=== PATIENT | female | born 1955 | race Caucasian/White ===

== ENCOUNTER 2023-10-28 08:02 | Day surgery (SDC) | payer MEDICARE ==
[2023-10-25 09:18] VITALS: BMI 27.3
[2023-10-28] MEDS ORDERED: CEFAZOLIN 2 GM VIAL ONE (08:38)
[2023-10-28] MEDS ORDERED: Sodium Chloride 0.9% 100 ML ONE (08:38)
[2023-10-28] MEDS ORDERED: Lidocaine 1% MPF 2 ML VIAL ONE (08:38)
[2023-10-28 09:21] LABS: #Eosinphils 0.1 thou/uL (0.0-0.7); #Monocytes 0.6 thou/uL (0.11-0.59); #Neutrophils 4.1 thou/uL (1.40-6.50); %Basophils 0.6 % (0.0-1.0); %Lymphocytes 29.6 % (21.0-51.0); %Monocytes 8.3 % (0.0-10.0); %Neutrophils 59.2 % (42.0-75.0); Hematocrit 37.8 % (36.0-47.0); Hemoglobin 12.5 g/dL (12.0-16.0); Mean Corpuscular HGB CONC 33.1 g/dL (32.0-36.0); Mean Corpuscular Hemoglobin 29.9 pg (27.0-31.0); Mean Corpuscular Volume 90.4 fl (78.0-98.0); Mean Platelet Volume 8.8 fL (7.4-10.4); Platelet Count 326 10x3/uL (130-400); RBC Distribution Width 13.8 % (11.5-14.5); Red Blood Cell (RBC) Count 4.18 mill/uL (4.20-5.40); White Blood Cell (WBC) Count 6.9 10x3/uL (4.8-10.8)
[2023-10-28] MEDS ORDERED: Rocuronium Bromide 10 MG/ML (10ML VIAL) ONE ×2 (09:31→10:43)
[2023-10-28] MEDS ORDERED: PROPOFOL 20 ML ONE (09:31)
[2023-10-28] MEDS ORDERED: Lidocaine 1% PF 5 ML VIAL ONE ×2 (09:31→10:43)
[2023-10-28 09:37] LABS: ALT (SGPT) 14 U/L (8-55); AST (SGOT) 22 U/L (5-34); Albumin 4.2 g/dL (3.4-4.8); Alkaline Phosphatase 67 U/L (40-110); Anion Gap 13 mmol/L (10-20); BUN (Urea Nitrogen) 17 mg/dL (9.8-20.1); Bilirubin, Total 0.7 mg/dL (0.2-1.2); Calc. Creatinine Clearance 47 mL/min (70-130); Calcium 9.4 mg/dL (7.8-10.44); Carbon Dioxide 19 mmol/L (23-31); Chloride 110 mmol/L (98-107); Estimated GFR 52; Glucose 102 mg/dL (80-115); PTT 31.3 sec (22.9-36.1); Potassium 3.9 mmol/L (3.5-5.1); Protein, Total 7.2 g/dL (5.8-8.1); Prothrombin Time 13.2 sec (12.0-14.7); Sodium 138 mmol/L (136-145)
[2023-10-28] MEDS ORDERED: Thrombin 5000 UNITS/5 ML VIAL ONE (10:09)
[2023-10-28] MEDS ORDERED: Vancomycin 1 GM VIAL ONE (10:09)
[2023-10-28] MEDS ORDERED: Fentanyl 250 MCG/5 ML VIAL ONE (10:31)
[2023-10-28] MEDS ORDERED: Ondansetron PF 4 MG/2 ML Vial ONE ×2 (10:43→11:36)
[2023-10-28] MEDS ORDERED: Labetalol HCl 100 MG/20 ML VIAL ONE ×3 (10:43→17:00)
[2023-10-28] MEDS ORDERED: Dexamethasone 20 MG/5 ML VIAL ONE ×2 (10:43→11:36)
[2023-10-28] MEDS ORDERED: PROPOFOL 200 MG/20 ML VIAL ONE (10:43)
[2023-10-28] MEDS ORDERED: PACU-Morphine 4MG/ML VIAL SLOW IVP PRN (13:21)
[2023-10-28] MEDS ORDERED: Promethazine HCl 25 MG/ML VIAL IM PRN (13:21)
[2023-10-28] MEDS ORDERED: Morphine Sulfate 2 MG/ML SYRINGE SLOW IVP PRN (13:21)
[2023-10-28] MEDS ORDERED: HYDROmorphone 2 MG/ML VIAL SLOW IVP PRN (13:21)
[2023-10-28] MEDS ORDERED: Ondansetron HCl/PF 4 MG/2 ML Vial IVP PRN (13:21)
[2023-10-28] MEDS ORDERED: Lidocaine 2% PF 5 ML VIAL ONE (13:31)
[2023-10-28] MEDS ORDERED: Tamsulosin HCl 0.4 MG CAP ONE (14:00)
[2023-10-28] MEDS ORDERED: fentaNYL 50 mcg/mL 1 mL Vial ONE (14:01)
== END 2023-10-28 18:05 | disposition home or self-care (01) ==
LOC: SDC 08:02
PROVIDERS: ATTEND Neurological Surgery
PROC: 0RG20A0 Fusion of 2 or more Cervical Vertebral Joints with Interbody Fusion Device, Anterior Approach, Anterior Column, Open Approach (ICD-10-PCS; principal; 2023-10-28)
PROC: 0RG2070 Fusion of 2 or more Cervical Vertebral Joints with Autologous Tissue Substitute, Anterior Approach, Anterior Column, Open Approach (ICD-10-PCS; 2023-10-28)
DX: M50.022 Cervical disc disorder at C5-C6 level with myelopathy (principal); M43.12 Spondylolisthesis, cervical region; M54.12 Radiculopathy, cervical region; E78.00 Pure hypercholesterolemia, unspecified; Z90.49 Acquired absence of other specified parts of digestive tract; Z90.710 Acquired absence of both cervix and uterus; Z87.891 Personal history of nicotine dependence
CPT/HCPCS: 36415; 80053; 85025; 85610; 85730; C1713; J1100; J2001; J2405; J2704; J3010; J3370; J3490